=== PATIENT | female | born 1995 | race African-American/Black ===

== ENCOUNTER 2016-05-05 21:46 | Emergency (ER) | payer BC, OTHER ==
[~2016-05-05] VITALS: Ht 157.5 cm; Wt 59.9 kg
[~2016-05-05 21:46] MED LIST: IBUP1CAP PO; MULT-506 PO
[2016-05-05 22:00] VITALS: TEMP 36.9; Ht 157.5 cm; Wt 59.9 kg
[2016-05-05] MEDS ORDERED: BIOT1CAP8 PO (22:54)
[2016-05-05] MEDS ORDERED: UNKNOWN INHALER INH (22:56)
[2016-05-05 23:20] VITALS: BP 122/69; PULSE 95; O2SAT 100
--- NOTE | 2016-05-05 23:46 | EMERGENCY ROOM VISIT NOTE ---
History Report prepared by Michael: Trish Mcneil Under the Supervision of: Dr. Luis Enrique Delvalle D.O. First contact with patient: 22:48 Chief Complaint: BURN (MINOR) Stated Complaint: CHEMICAL PEEL ON FACE, FACE BURNING History of Present Illness The patient is a 20 year old female who presents to the Emergency Room with complaints of a constant burn to the face occurring shortly [employer] WORKING [employer]PERVIS[employer]. The patient states that she bought a chemical peel off [employer] and used it on her face and it has caused it to burn her face. She states that it said to leave it on her face for 45 seconds but she left it on for 18 minutes. She states that it was burning while it was on but she continued to keep it on her face. She states that her forehead did not feel very burn but she has some ann to her checks mainly. The patient rates the pain of the ann as an 8/10 in severity. The patient denies any other pain. Source of History: patient Onset: shortly [employer] Position: head (face) Symptom Intensity: 8/10 Timing: constant Note: Patient denies any other pain. Review of Systems See HPI for pertinent positives & negatives. A total of 10 systems reviewed and were otherwise negative. Past Medical & Surgical Medical Problems: (1) Allergic reaction Family History Heart disease Social History Smoking Status: Never Smoker Marital Status: single Housing Status: lives with roommate Occupation Status: [employer] student Current/Historical Medications Scheduled Biotin (Biotin), 2 TABS PO BID Ibuprofen (Midol), 400 MG PO DIRECTED [Unknown Inhaler], 2 PUFFS INH BID Allergies Coded Allergies: Alcohol (Unverified Allergy, Unknown, ANAPHYLAXIS, 01/08/16) Physical Exam Vital Signs Date Time Temp Pulse Resp B/P Pulse Ox O2 Delivery O2 Flow Rate FiO2 05/05/16 23:20 95 20 122/69 100 05/05/16 22:25 99 Room Air 05/05/16 22:00 36.9 82 17 132/88 99 Room Air Physical Exam CONSTITUTIONAL/VITAL SIGNS: Reviewed / noted above. GENERAL: Non-toxic in appearance. INTEGUMENTARY: Warm, dry, and [place]. HEAD: Some first degree ann to the bilateral maxillary and cheeks areas. Mild tenderness. EYES: without scleral icterus or trauma. ENT/OROPHARYNX: clear and moist. LYMPHADENOPATHY/NECK: Is supple without lymphadenopathy or meningismus. RESPIRATORY: Lungs clear and equal. CARDIOVASCULAR: Regular rate and rhythm. GI/ABDOMEN: Soft and nontender. No organomegaly or pulsatile mass. No rebound or guarding. Normal bowel sounds. EXTREMITIES: Warm and well perfused. BACK: No CVA tenderness. NEUROLOGICAL: Intact without focal deficits. PSYCHIATRIC: normal affect. MUSCULOSKELETAL: Normally developed with good muscle tone. Medical Decision & Procedures ED Course 225: Previous medical records were reviewed. The patient was evaluated in room B12B. A complete history and physical examination was performed. I discussed with the patient the treatment of the burn and applied a topical antibiotic to relieve the pain of the burn. I also discussed to her what she should avoid putting on her face until the burn heals. She verbalized agreement of the treatment plan. The patient was discharged home. Medical Decision Differential diagnoses include but is not limited to first-degree, second- degree and third-degree ann. There is no evidence of infection. This is a 20-year-old female who presents to the ED with a chief complaint of facial ann after using a glycolic acid facial peel. She states that was supposed to be on for 45 seconds but she left it on for about 18 minutes. The patient presents within a couple hours with complaints of discomfort in her face from the ann. He has removed the peel from her face. Patient's exam reveals primarily a first-degree type burn to the face. There is tenderness primarily in the cheeks and the maxilla. After evaluated the patient, her symptoms are suggestive of a first-degree burn. Topical bacitracin was applied to the wounds. She was advised to use topical antibiotic to the wounds anticipate improvement over the next week to 10 days. She will return for any signs of infection or other concerns. She was to avoid sun exposure. Impression Primary Impression: First degree burn of face Scribe Attestation The scribe's documentation has been prepared under my direction and personally reviewed by me in its entirety. I confirm that the note above accurately reflects all work, treatment, procedures, and medical decision making performed by me. Departure Information Dispostion Home / Self-Care Referrals [facility] ([facility]) Forms HOME CARE DOCUMENTATION FORM, IMPORTANT VISIT INFORMATION Patient Instructions [facility]
== END 2016-05-05 23:20 | disposition home or self-care (01) ==
LOC: C.EDB 21:48
DX: T20.10XA Burn of first degree of head, face, and neck, unspecified site, initial encounter (principal); X19.XXXA Contact with other heat and hot substances, initial encounter